=== PATIENT | female | born 1940 | race Caucasian/White ===

== ENCOUNTER 2017-11-09 11:19 | Emergency (ER) | payer MEDICARE, MEDICAID ==
[2017-11-09] MEDS ORDERED: Sodium Chloride 0.9% 1,000 ML IV ONE (11:50)
[2017-11-09] MEDS ORDERED: Sodium Chloride 0.9% 1,000 ML ONE (11:58)
[2017-11-09 12:11] LABS: BASO % 0.3 % (0.0-2.0); EOS % 0.4 % (0.0-4.0); HEMATOCRIT 43.4 % (34.0-47.0); LYMPH # 0.5 K/uL (1.0-4.3); LYMPH % 5.5 % (20.0-40.0); MEAN CELL VOLUME 96.2 fL (81.0-99.0); MEAN CORPUSCULAR HEMOGLOBIN 32.6 pg (27.0-31.0); MEAN CORPUSCULAR HGB CONC 33.9 g/dL (33.0-37.0); MEAN PLATELET VOLUME 8.3 fL (7.2-11.7); MONO # 0.2 K/uL (0.0-0.8); MONO % 2.7 % (0.0-10.0); PLATELET COUNT 193 K/uL (130-400); WHITE BLOOD COUNT 8.3 K/uL (4.8-10.8)
[2017-11-09 12:24] LABS: ALB/GLOB RATIO 1.5 (1.0-2.1); ALKALINE PHOSPHATASE 52 U/L (38-126); ALT/SGPT 47 U/L (9-52); AST/SGOT 47 U/L (14-36); BILIRUBIN,TOTAL 0.8 mg/dL (0.2-1.3); BLOOD UREA NITROGEN 21 mg/dL (7-17); CALCIUM 8.4 mg/dl (8.6-10.4); CARBON DIOXIDE 22 mmol/L (22-30); CHLORIDE 103 mmol/L (98-107); GFR AFRICAN-AMERICAN > 60; GLUCOSE,RANDOM 123 mg/dL (65-105); POTASSIUM 4.1 mmol/L (3.6-5.2); SODIUM 136 mmol/L (132-148); TOTAL PROTEIN 7.3 g/dL (6.3-8.3)
--- NOTE | 2017-11-09 12:25 | C.PDOC ---
History Of Present Illness 77 year old female presents to ED for evaluation of abdominal cramping associated with n/v/d since last night. Pt reports last vomited at 3am this morning, notes that symptoms have improved since that time. Pt feels that symptoms are due to the food she ate last night. Denies fever, chills, chest pain, shortness of breath, or recent travel. History obtained via [employer] [facility] ( [place]). Time Seen by Provider: 11/09/17 11:26 Chief Complaint (Nursing): Abdominal Pain History Per: Account Administrator History/Exam Limitations: no limitations Onset/Duration Of Symptoms: Days, Waxing/Waning Current Symptoms Are (Timing): Better Context: Food Location Of Pain/Discomfort: Diffuse Radiation Of Pain To:: None Quality Of Discomfort: Cramping Associated Symptoms: Nausea, Vomiting, Diarrhea. denies: Fever, Chills, Back Pain, Chest Pain, Constipation, Urinary Symptoms Exacerbating Factors: None Alleviating Factors: None Recent travel outside of the [place]: No Additional History Per: Patient Abnormal Vaginal Bleeding: No Past Medical History Reviewed: Historical Data, Nursing Documentation, Vital Signs Vital Signs: Last Vital Signs Temp 98.1 F 11/09/17 13:38 Pulse 78 11/09/17 13:38 Resp 16 11/09/17 13:38 BP 117/68 11/09/17 13:38 Pulse Ox 96 11/09/17 14:17 - Medical History PMH: Hypercholesterolemia, Hyperlipidemia Family History: States: Unknown Family Hx - Social History Hx Alcohol Use: No Hx Substance Use: No - Immunization History Hx Tetanus Toxoid Vaccination: Yes Hx Influenza Vaccination: Yes Hx Pneumococcal Vaccination: Yes Review Of Systems Constitutional: Negative for: Fever, Chills Cardiovascular: Negative for: Chest Pain, Palpitations Respiratory: Negative for: Cough, Shortness of Breath Gastrointestinal: Positive for: Nausea, Vomiting, Abdominal Pain, Diarrhea. Negative for: Constipation Genitourinary: Negative for: Dysuria, Frequency, Hematuria Musculoskeletal: Negative for: Back Pain Physical Exam - Physical Exam Appears: Non-toxic, No Acute Distress Skin: Normal Color, Warm, Dry Head: Atraumatic, Normacephalic Eye(s): bilateral: Normal Inspection Oral Mucosa: Moist Chest: Symmetrical Cardiovascular: Rhythm Regular, No Murmur Respiratory: Normal Breath Sounds, No Rales, No Rhonchi, No Wheezing Gastrointestinal/Abdominal: Soft, No Tenderness, No Guarding, No Rebound Extremity: Normal ROM, No Deformity Neurological/Psych: Oriented x3, Normal Speech ED Course And Treatment - Laboratory Results Result Diagrams: 11/09/17 12:07 11/09/17 12:07 ECG: Interpreted By Me, Viewed By Me ECG Rhythm: Sinus Rhythm ECG Interpretation: No Acute Changes Interpretation Of ECG: Normal axis, normal intervals. Poor R waves progression. Artifact present. Rate From EC (bpm) O2 Sat by Pulse Oximetry: 96 (RA) Pulse Ox Interpretation: Normal - Radiology CXR: Interpreted by Me, Viewed By Me CXR Interpretation: No: Infiltrates - Other Rad Obstructive series X-Ray: Interpreted by Me, Viewed By Me Interpretation: Non-specific gas pattern Medical Decision Making Medical Decision Making: Blood work, EKG, obstructive series x-ray ordered and reviewed. Patient was given Pepcid, Zofran, Toradol, and IV fluids. Assessment: Abdominal pain On re-eval, pt reports feeling better, symptoms have resolved. Pt is being discharged home with instructions to follow up with PMD in 1-2 days, and return to ED if symptoms worsen. Disposition Counseled Patient/Family Regarding: Studies Performed, Diagnosis, Need For Followup, Rx Given - Disposition Referrals: Maryanne Hanley MD [Staff Provider] - Disposition: HOME/ ROUTINE Disposition Time: 14:15 Condition: STABLE Additional Instructions: follow up with your doctor in 2 days call to make an appointment take medications as needed return to hospital if symptoms worsens or progress Prescriptions: Famotidine [Pepcid] 20 mg PO BID #20 tab Ondansetron ODT [Zofran ODT] 4 mg PO TID PRN #12 odt PRN Reason: Nausea/Vomiting Instructions: Abdominal Pain (ED) Forms: [facility] (Polish), General Discharge Instructions Print Language: BAHAMIAN - Clinical Impression Clinical Impression: Abdominal pain - Scribe Statement The provider has reviewed the documentation as recorded by the Virgilibgary Sin All medical record entries made by the Scribe were at my direction and personally dictated by me. I have reviewed the chart and agree that the record accurately reflects my personal performance of the history, physical exam, medical decision making, and the department course for this patient. I have also personally directed, reviewed, and agree with the discharge instructions and disposition.
[2017-11-09 12:33] LABS: NEUTROPHIL 89 % (50-75); TOTAL CELLS COUNTED 100
[2017-11-09 13:40] VITALS: BP 117/68; PULSE 78; RESP 16; TEMP 98.1
[2017-11-09 14:00] VITALS: O2SAT 96
--- NOTE | 2017-11-09 15:39 | RAD ---
PROCEDURE: Radiographs of the chest and abdomen (obstructive series) HISTORY: abd pain COMPARISON: No prior. TECHNIQUE: AP radiograph of the chest, with upright and supine radiographs of the abdomen. FINDINGS: CHEST: Lungs: Clear no infiltrate Cardiovascular: Normal size heart. No pulmonary vascular congestion. Pleura: No pleural fluid. No pneumothorax. Other findings: None. ABDOMEN AND PELVIS: Bowel: Paucity of the bowel gas. . Of those loops with gas, no suspect small large bowel distension suggested. No evidence of mechanical obstruction. Free air: None. Bones: Unremarkable. Other findings: None. IMPRESSION: No pulmonary infiltrate no free air. No evidence of mechanical bowel obstruction.
--- NOTE | 2017-11-10 23:15 | CARD ---
APPROVED REPORT EKG Measurement Heart [id number] <Conclusion> Normal sinus rhythm Right superior axis deviation Anterior infarct, age undetermined Abnormal ECG
== END 2017-11-09 14:40 | disposition home or self-care (01) ==
LOC: C.ER 11:19
DX: R10.9 Unspecified abdominal pain (principal); E78.00 Pure hypercholesterolemia, unspecified; E78.5 Hyperlipidemia, unspecified
CPT/HCPCS: 74022; 80053; 83690; 84484; 85025; 93005; 96361; 96374; 96375; 99284; J1885; J2405; J7040